=== PATIENT | male | born 1985 | race African-American/Black ===

== ENCOUNTER 2018-02-05 05:35 | Emergency (ER) | payer SELFPAY ==
[~2018-02-05] VITALS: Ht 188 cm; Wt 8.6 kg
[2018-02-05 05:46] VITALS: BP 127/67
[2018-02-05] MEDS ORDERED: ONDANSETRON 4 MG TAB.RAPDIS ONE ×2 (05:51→06:19)
[2018-02-05] MEDS ORDERED: ONDANSETRON 4 MG TAB.RAPDIS PO ONE (06:00)
[2018-02-05] MEDS ORDERED: ONDANSETRON 4 MG TAB.RAPDIS SL ONE (06:30)
== END 2018-02-05 06:25 | disposition home or self-care (01) ==
LOC: ER 05:39
DX: R11.2 Nausea with vomiting, unspecified (principal); R42 Dizziness and giddiness
CPT/HCPCS: A4606; Q0162; Z7610